=== PATIENT | female | born 1935 | race African-American/Black ===

== ENCOUNTER → 2017-05-02 | Outpatient (CLI) | payer MEDICARE, MEDICAID ==
[~2017-05-02] MED LIST: AMLO10TA2 PO; ASPI81CH43; BACL10TA OR; BUSP5TAB22 PO; CLOP75TA28 OR; DONE5TAB11 OR; ESCI10TA OR; ESCI10TA PO; FURO20TA; GABA-497 OR; LABE100T OR; MAGN400T23; PANTPAK PO; POTA-167 OR; SENEKOT PO; VITACAP46 PO; WARF5TAB OR
[2017-05-02 16:50] LABS: Basophils # (auto) 0.1 uL; Basophils % (auto) 1.5 % (0.0-2.0); Eosinophils # (auto) 0.1 uL; Eosinophils % (auto) 0.9 % (0.0-7.0); Hematocrit 35.7 % (36.0-46.0); Hemoglobin 11.4 g/dL (12.2-16.2); Lymphocytes # (auto) 1.1 uL; Lymphocytes % (auto) 18.9 % (10.0-50.0); Mean Corpuscular Hemoglobin 27.4 pg (28.0-32.0); Mean Corpuscular Volume 85.5 fL (80.0-100.0); Mean Platelet Volume 7.1 fL (6.9-10.8); Monocytes # (auto) 0.4 uL; Monocytes % (auto) 7.5 % (0.0-12.0); Neutrophils # (auto) 4.2 uL; Neutrophils % (auto) 71.2 % (37.0-80.0); Nucleated Red Blood Cells % 0.1 %; Platelet Count (auto) 302 10^3/uL (140-450); Red Cell Distribution Width 17.4 % (11.8-14.3); White Blood Cell 5.9 10^3/uL (4.4-10.8)
[2017-05-02 17:10] LABS: Albumin 3.4 g/dL (3.4-5.0); BUN/Creatinine Ratio 11.8; Bilirubin, Total 0.4 mg/dL (0.2-1.0); Calcium 9.2 mg/dL (8.5-10.1); Potassium 4.6 mmol/L (3.5-5.1); Total Protein 9.5 g/dL (6.4-8.2); Uric Acid 7.1 mg/dL (2.6-6.0)
[2017-05-02 17:32] LABS: Urine Bilirubin Negative (Negative); Urine Blood 1+ /uL (Negative); Urine Color Yellow (Yellow); Urine Glucose Normal (Normal); Urine Ketone Negative (Negative); Urine Nitrite Negative (Negative); Urine RBC 9 /hpf (0 - 4); Urine Squamous Epithelial Cell FEW /hpf (<5); Urine Triple Phosphate Crystal MOD /hpf (None Seen); Urine Urobilinogen Normal (Negative)
== END | disposition home or self-care (01) ==
LOC: LAB 16:07
PROVIDERS: ATTEND Internal Medicine
DX: I13.0 Hypertensive heart and chronic kidney disease with heart failure and stage 1 through stage 4 chronic kidney disease, or unspecified chronic kidney disease (principal); I50.32 Chronic diastolic (congestive) heart failure; N18.3 Chronic kidney disease, stage 3 (moderate); M10.9 Gout, unspecified
CPT/HCPCS: 36415; 80053; 80061; 81001; 82043; 82607; 83036; 83970; 84439; 84443; 84550; 85025; 85652